=== PATIENT | male | born 1995 | race Caucasian/White ===

== ENCOUNTER 2025-03-20 00:44 | Emergency (ER) | payer SELFPAY ==
[~2025-03-20] VITALS: Ht 182.9 cm; Wt 131.8 kg
[2025-03-20 00:50] VITALS: TEMP 98
[2025-03-20 01:32] LABS: PLATELET COUNT (AUTO) 203 K/uL (150-450); RED BLOOD CELL COUNT(AUTO) 5.13 MIL/uL (4.50-5.90); RED CELL DISTRIBUTION WIDTH 13.4 % (11.5-14.5); WHITE BLOOD COUNT (AUTO) 5.1 K/uL (4.5-11.0)
[2025-03-20] MEDS: SODIUM CHLORIDE 0.9% 1,000 ML IV ONE (01:36)
[2025-03-20 01:47] LABS: SODIUM SERUM 139 mmol/L (136-145)
[2025-03-20 01:59] LABS: CALCIUM, TOTAL 8.9 mg/dL (8.8-10.5); CREATININE 1.02 mg/dL (0.60-1.30); GLOMERULAR FILTR. RATE CALC > 60 mL/min (>60); GLUCOSE,RANDOM 106 mg/dL (70-110); UREA NITROGEN, BLOOD 16 mg/dL (7-18)
[2025-03-20 05:19] VITALS: BP 102/57; PULSE 90; RESP 14; O2SAT 97
== END 2025-03-20 06:05 | disposition home or self-care (01) ==
LOC: EMS 00:48
DX: T40.411A Poisoning by fentanyl or fentanyl analogs, accidental (unintentional), initial encounter (principal); F10.129 Alcohol abuse with intoxication, unspecified; Z79.899 Other long term (current) drug therapy; Y90.9 Presence of alcohol in blood, level not specified
CPT/HCPCS: 99283; 96360; 96361; 80048; 85025; G0480; J7030